=== PATIENT | male | born 1965 | race Caucasian/White ===

== ENCOUNTER 2022-02-12 07:29 | Inpatient (IN) ==
--- NOTE | 2022-02-12 07:40 | Emergency Department Note ---
Impression & Plan AMS (altered mental status) ADMIT ED Provider Note HPI: The patient is a 56-year-old male with history of cirrhosis, presents the emergency department with a chief complaint of confusion. Patient was reportedly waiting outside of [facility] for the past 2 hours prior to arrival to the ED "waiting for them to open". He does work for the [employer] in [employer] and states he was working last night and began to feel nauseous and apparently was confused and therefore was waiting outside of [facility]. When they opened the patient was referred to the ED for further assessment given his mild to moderate confusion. ROS: -Neuro: Confusion *10 point review systems was conducted and is otherwise negative unless stated above *Outpatient medications and allergy history reviewed PE: General: Alert, oriented to place and time HEENT: Normocephalic, trachea midline Eyes: Extraocular eye movement is intact, no scleral erythema Pulmonary: Clear to auscultation bilaterally, no wheezing Cardio: Regular rate and rhythm GI: Abdomen is soft, distended, no tenderness or rigidity to palpation : No suprapubic tenderness MSK: No evidence of trauma or malformation of the extremities, no edema Skin: No evidence of rash Neuro: Alert, no focal deficits Psychiatric: Cooperative child monitor: - An order was placed for continuous cardiac monitoring - Patient was noted to be in sinus rhythm with a rate of 90 EKG: Rate: 101 Rhythm: Sinus tachycardia Intervals: QTC 516, otherwise within normal limits ST changes: No ST elevation Time: 0738 Interventions provided in ED: -IV albumin, IV normal saline bolus, IV ceftriaxone Medical Decision Making: Patient presented to the emergency department with some mild to moderate confusion, he stated that he was working overnight with [employer] and was feeling unwell, states he had some nausea, states he generally just did not feel well and therefore went to [facility] to be assessed. They were not open so he waited there for several hours and when they opened they evaluated the patient and referred him to the ER. On arrival the patient is alert although he does display some mild confusion when I am obtaining history, he denies any focal complaint of pain. He is hemodynamically stable on arrival. IV was established, lab work obtained, CT imaging of the head was obtained that does not show any evidence of an acute intracranial process. Chest x-ray does not show any acute process. Lab work does not show any leukocytosis, patient's ammonia level is only 58, BUN is within normal limits. Patient did have an episode of hypotension into the 80s while he is work-up is ongoing, his lactic acid is moderately elevated at 2.3, blood cultures were drawn in the ED and patient was treated with a small bolus of IV fluids in addition to IV albumin to support his blood pressure. He was not given a full 30 cc/kg bolus over concern for third spacing of fluid given his history of cirrhosis. Blood pressure did improve following normal saline bolus and albumin to 113 systolic on my reassessment. Patient appears improved from previous when he was admitted. I discussed all of the above findings with the patient's brother, Yaw Duarte, on the phone, he states that the patient is from [place] and normally receives his care at the [facility] in [place]. He also states that the patient has had some increasing issues with confusion over the past several weeks, gives the example that he locked himself out of his house and then forgot where he was recently. At this time I do feel it would be appropriate to admit the patient for his confusion, hypotension, and lactic acidosis. He was treated prophylactically with IV ceftriaxone although have low suspicion for spontaneous bacterial peritonitis given his benign abdominal exam. I do not feel that he is fit for discharge at this time and therefore I did discuss the case with the on-call admitting service for [facility] and they were consulted for admission. Patient is in agreement for admission and he was admitted in stable condition. Diagnosis: 1. Altered mental status 3. Cirrhosis of the liver 4. Thrombocytopenia 5. Lactic acidosis 6. Hypotension, fluid responsive Disposition: Admission Yaw Verde DO Emergency Medicine Past Med/Surg History Social History Smoking Status: Never smoker Preferred Language: Bulgarian Feels Safe at Home: Yes Allergies Allergies Allergy/AdvReac Type Severity Reaction Status Date / Time lisinopril Allergy Severe Anaphylaxis Verified 02/12/22 11:42 Results & Data (ED) Vital Signs Vital Signs - 24 hr 02/12/22 07:36 02/12/22 08:15 02/12/22 08:00 Temperature 35.9 C L Temperature Source Axillary Pulse Rate 102 H Pulse Rate from SpO2 Sensor Respiratory Rate 22 Respiratory Effort / Characteristics Non-Labored Spontaneous Respiratory Depth Normal Blood Pressure 121/66 115/66 Blood Pressure Mean 84 82 Blood Pressure Position Lying Pulse Oximetry 100 Oxygen Delivery Method Room Air Sepsis Recent Fever Within 48 Hours No Sepsis New/Unexplained Change in Mental Status Yes Sepsis Action Taken by Nursing Physician Notified 02/12/22 08:00 02/12/22 08:30 02/12/22 09:00 Temperature Temperature Source Pulse Rate 99 H 105 H 99 H Pulse Rate from SpO2 Sensor Respiratory Rate 16 14 14 Respiratory Effort / Characteristics Respiratory Depth Blood Pressure 127/80 116/92 Blood Pressure Mean 95 100 Blood Pressure Position Pulse Oximetry 97 100 100 Oxygen Delivery Method Sepsis Recent Fever Within 48 Hours Sepsis New/Unexplained Change in Mental Status Sepsis Action Taken by Nursing 02/12/22 09:15 02/12/22 09:30 02/12/22 10:00 Temperature Temperature Source Pulse Rate 99 H 99 H 98 H Pulse Rate from SpO2 Sensor 99 H 99 H 99 H Respiratory Rate 14 14 14 Respiratory Effort / Characteristics Respiratory Depth Blood Pressure 112/61 112/60 115/66 Blood Pressure Mean 78 77 82 Blood Pressure Position Pulse Oximetry 100 100 99 Oxygen Delivery Method Sepsis Recent Fever Within 48 Hours Sepsis New/Unexplained Change in Mental Status Sepsis Action Taken by Nursing 02/12/22 10:30 02/12/22 11:00 Temperature Temperature Source Pulse Rate 100 H 99 H Pulse Rate from SpO2 Sensor 100 H 99 H Respiratory Rate 23 20 Respiratory Effort / Characteristics Respiratory Depth Blood Pressure 91/47 L 84/45 L Blood Pressure Mean 61 58 Blood Pressure Position Pulse Oximetry 98 97 Oxygen Delivery Method Sepsis Recent Fever Within 48 Hours Sepsis New/Unexplained Change in Mental Status Sepsis Action Taken by Nursing Laboratory Data Result diagrams: 02/12/22 08:12 02/12/22 08:11 Lab Results 02/12/22 02/12/22 02/12/22 Range/Units 07:57 08:11 08:11 WBC (4.8-10.8) K/ul RBC (4.63-6.08) M/uL Hgb (14.0-18.0) g/dl Hct (40.1-51.0) % MCV (80.0-100.0) fL MCH (25.0-34.0) pg MCHC (32.0-36.0) g/dL RDW Std Deviation (36.4-46.3) fL RDW Coeff of Gillian (11.5-14.5) % Plt Count (130-400) K/uL MPV (9.4-12.4) fL Neutrophils % (Manual) % Lymphocytes % (Manual) % Monocytes % (Manual) % Eosinophils % (Manual) % Neutrophils # (Manual) (1.4-6.5) K/uL Total Absolute Neuts (1.4-6.5) K/uL Lymphocytes # (Manual) (1.2-3.4) K/uL Total Abs Lymphocytes (1.2-3.4) K/uL Monocytes # (Manual) (0.24-0.82) K/uL Eosinophils # (Manual) (0-0.50) K/uL Platelet Estimate (Normal) Echinocytes PT 12.2 H (9.0-12.0) Seconds INR 1.2 H (0.9-1.1) APTT 25.2 (21.0-31.0) Seconds PTT Ratio 0.9 Sodium 133 L (136-145) mmol/L Potassium 3.5 (3.5-5.1) mmol/L Chloride 99 (98-107) mmol/L Carbon Dioxide 24 (21-32) mmol/L Anion Gap 10 (3-11) BUN 19 (6-23) mg/dl Creatinine 1.16 (0.6-1.4) mg/dl Est Cr Clr Drug Dosing 74.8 ml/min Est GFR ( Amer) 80.6 ml/min Est GFR (Non-Af Amer) 69.5 ml/min BUN/Creatinine Ratio 16.4 (10-20) Glucose 116 H (70-99(Fasting)) mg/dl POC Glucose 119 H (70-99) mg/dl Lactate (0.4-2.0) mmol/L Calcium 8.9 (8.5-10.1) mg/dl Magnesium 2.1 (1.7-2.4) mg/dl Total Bilirubin 2.0 H (0.2-1.0) mg/dl Direct Bilirubin 0.7 H (0-0.2) mg/dl AST 31 (13-39) U/L ALT 17 (7-52) U/L Alkaline Phosphatase 138 H (34-104) U/L Ammonia (18-72) umol/L Troponin I High Sens 9.8 (0-20) pg/ml Total Protein 6.4 (6.0-8.3) gm/dl Albumin 3.1 L (3.4-5.0) gm/dl Procalcitonin (0-0.5) ng/ml SARS-CoV-2 (PCR) (Negative) Influenza Type A (PCR) (Neg) Influenza Type B (PCR) (Neg) RSV (RT-PCR) (Neg) 02/12/22 02/12/22 02/12/22 Range/Units 08:11 08:11 08:12 WBC 10.40 (4.8-10.8) K/ul RBC 3.47 L (4.63-6.08) M/uL Hgb 10.7 L (14.0-18.0) g/dl Hct 30.2 L (40.1-51.0) % MCV 87.0 (80.0-100.0) fL MCH 30.8 (25.0-34.0) pg MCHC 35.4 (32.0-36.0) g/dL RDW Std Deviation 44.6 (36.4-46.3) fL RDW Coeff of Gillian 14.1 (11.5-14.5) % Plt Count 98 L (130-400) K/uL MPV 9.8 (9.4-12.4) fL Neutrophils % (Manual) 89 % Lymphocytes % (Manual) 8 % Monocytes % (Manual) 3 % Eosinophils % (Manual) 1 % Neutrophils # (Manual) 9.26 H (1.4-6.5) K/uL Total Absolute Neuts 9.26 H (1.4-6.5) K/uL Lymphocytes # (Manual) 0.83 L (1.2-3.4) K/uL Total Abs Lymphocytes 0.83 L (1.2-3.4) K/uL Monocytes # (Manual) 0.31 (0.24-0.82) K/uL Eosinophils # (Manual) 0.10 (0-0.50) K/uL Platelet Estimate Decreased L (Normal) Echinocytes 1+ PT (9.0-12.0) Seconds INR (0.9-1.1) APTT (21.0-31.0) Seconds PTT Ratio Sodium (136-145) mmol/L Potassium (3.5-5.1) mmol/L Chloride (98-107) mmol/L Carbon Dioxide (21-32) mmol/L Anion Gap (3-11) BUN (6-23) mg/dl Creatinine (0.6-1.4) mg/dl Est Cr Clr Drug Dosing ml/min Est GFR ( Amer) ml/min Est GFR (Non-Af Amer) ml/min BUN/Creatinine Ratio (10-20) Glucose (70-99(Fasting)) mg/dl POC Glucose (70-99) mg/dl Lactate (0.4-2.0) mmol/L Calcium (8.5-10.1) mg/dl Magnesium (1.7-2.4) mg/dl Total Bilirubin (0.2-1.0) mg/dl Direct Bilirubin (0-0.2) mg/dl AST (13-39) U/L ALT (7-52) U/L Alkaline Phosphatase (34-104) U/L Ammonia 58.0 (18-72) umol/L Troponin I High Sens (0-20) pg/ml Total Protein (6.0-8.3) gm/dl Albumin (3.4-5.0) gm/dl Procalcitonin < 0.05 (0-0.5) ng/ml SARS-CoV-2 (PCR) (Negative) Influenza Type A (PCR) (Neg) Influenza Type B (PCR) (Neg) RSV (RT-PCR) (Neg) 02/12/22 02/12/22 02/12/22 Range/Units 08:12 09:40 10:06 WBC (4.8-10.8) K/ul RBC (4.63-6.08) M/uL Hgb (14.0-18.0) g/dl Hct (40.1-51.0) % MCV (80.0-100.0) fL MCH (25.0-34.0) pg MCHC (32.0-36.0) g/dL RDW Std Deviation (36.4-46.3) fL RDW Coeff of Gillian (11.5-14.5) % Plt Count (130-400) K/uL MPV (9.4-12.4) fL Neutrophils % (Manual) % Lymphocytes % (Manual) % Monocytes % (Manual) % Eosinophils % (Manual) % Neutrophils # (Manual) (1.4-6.5) K/uL Total Absolute Neuts (1.4-6.5) K/uL Lymphocytes # (Manual) (1.2-3.4) K/uL Total Abs Lymphocytes (1.2-3.4) K/uL Monocytes # (Manual) (0.24-0.82) K/uL Eosinophils # (Manual) (0-0.50) K/uL Platelet Estimate (Normal) Echinocytes PT (9.0-12.0) Seconds INR (0.9-1.1) APTT (21.0-31.0) Seconds PTT Ratio Sodium (136-145) mmol/L Potassium (3.5-5.1) mmol/L Chloride (98-107) mmol/L Carbon Dioxide (21-32) mmol/L Anion Gap (3-11) BUN (6-23) mg/dl Creatinine (0.6-1.4) mg/dl Est Cr Clr Drug Dosing ml/min Est GFR ( Amer) ml/min Est GFR (Non-Af Amer) ml/min BUN/Creatinine Ratio (10-20) Glucose (70-99(Fasting)) mg/dl POC Glucose (70-99) mg/dl Lactate 2.3 H* 2.1 H* (0.4-2.0) mmol/L Calcium (8.5-10.1) mg/dl Magnesium (1.7-2.4) mg/dl Total Bilirubin (0.2-1.0) mg/dl Direct Bilirubin (0-0.2) mg/dl AST (13-39) U/L ALT (7-52) U/L Alkaline Phosphatase (34-104) U/L Ammonia (18-72) umol/L Troponin I High Sens (0-20) pg/ml Total Protein (6.0-8.3) gm/dl Albumin (3.4-5.0) gm/dl Procalcitonin (0-0.5) ng/ml SARS-CoV-2 (PCR) NEGATIVE (Negative) Influenza Type A (PCR) Negative (Neg) Influenza Type B (PCR) Negative (Neg) RSV (RT-PCR) Negative (Neg) Administered Medications Albumin Human (Albumin 5%) 250 mls @ 50 mls/hr IV ONE ONE Stop: 02/12/22 16:06 Last Admin: 02/12/22 11:12 Dose: 50 mls/hr Documented By: MT Discontinued Medications Sodium Chloride (Nss 1000ml) 500 mls @ 999 mls/hr IV .Q31M ONE Stop: 02/12/22 11:36 Last Admin: 02/12/22 11:08 Dose: 999 mls/hr Documented By: VITA Ceftriaxone Sodium (Rocephin) 2,000 mg in 70 mls @ 140 mls/hr IV NOW STA Stop: 02/12/22 11:37 Last Admin: 02/12/22 11:23 Dose: 140 mls/hr Documented By: VITA Imaging Data Radiologist's Impression: Chest X-Ray 02/12/22 07:37 XR chest 1V portable HISTORY: 56 years-old Male Sepsis acute sepsis COMPARISON: None TECHNIQUE: AP view of the chest FINDINGS: Cardiomediastinal and hilar silhouettes are within normal limits. No pneumothorax, pleural effusion, overt pulmonary edema or focal airspace consolidation. Mild right hemidiaphragmatic elevation. Degenerative changes of the right greater than left shoulders and spine. Surgical clip projects over the medial right lung base. IMPRESSION: No acute process. ACT 112: Negative or not required by law. The above report was generated using voice recognition software. It may contain grammatical, syntax or spelling errors. Electronically signed by: Stevie Buckley M.D. 02/12/2022 8:[address] 02/12/22 09:37 CT head/brain wo con CLINICAL HISTORY: 56 years-old Male with AMS. Acutely altered mental status TECHNIQUE: Multiple axial CT images of the head were obtained without contrast. A dose lowering technique was utilized adhering to the principles of ALARA. CT DOSE: 601.98 mGy.cm COMPARISON: None. FINDINGS: No acute intracranial hemorrhage, midline shift, intracranial mass, hydrocephalus, territorial ischemia or abnormal extra-axial collection. Mild involutional changes. Cerebral vascular calcifications. The calvarium is intact. The paranasal sinuses, mastoid air cells, and middle ear cavities are clear. IMPRESSION: No acute intracranial abnormality. ACT 112: Negative or not required by law. The above report was generated using voice recognition software. It may contain grammatical, syntax or spelling errors. Electronically signed by: Stevie Buckley M.D. 02/12/2022 10:04 AM Discharge Plan Visit Data Chief Complaint: Altered Mental Status Stated Complaint: WEAKNESS, NAUSEA ED Provider: Yaw Verde Discharge Problem: AMS (altered mental status) Forms Stand Alone Forms: [facility] Referrals Referrals: Natalie Amezcua M.D. [Primary Care Provider] - : AMS (altered mental status) Qualifiers: Altered mental status type: unspecified Qualified Code(s): R41.82 - Altered mental status, unspecified
--- NOTE | 2022-02-12 08:25 | XRay Report ---
XR chest 1V portable HISTORY: 56 years-old Male Sepsis acute sepsis COMPARISON: None TECHNIQUE: AP view of the chest FINDINGS: Cardiomediastinal and hilar silhouettes are within normal limits. No pneumothorax, pleural effusion, overt pulmonary edema or focal airspace consolidation. Mild right hemidiaphragmatic elevation. Degene rative changes of the right greater than left shoulders and spine. Surgical clip projects over the me dial right lung base. IMPRESSION: No acute process. ACT 112: Negative or not required by law. The above report was generated using voice recognition software. It may contain grammatical, syntax o r spelling errors. Electronically signed by: Stevie Buckley M.D. 02/12/2022 8:24 AM
[2022-02-12 08:43] LABS: INR 1.2 (0.9-1.1); Partial Thromboplastin Ratio 0.9; Partial Thromboplastin Time 25.2 Seconds (21.0-31.0); Prothrombin Time 12.2 Seconds (9.0-12.0)
[2022-02-12 08:51] LABS: ALC (manual) 0.83 K/uL (1.2-3.4); ANC (manual) 9.26 K/uL (1.4-6.5); Echinocytes 1+; Eosinophils % (manual) 1 %; Hematocrit (blood only) 30.2 % (40.1-51.0); Hemoglobin 10.7 g/dl (14.0-18.0); Lymphocytes # (manual) 0.83 K/uL (1.2-3.4); Lymphocytes % (manual) 8 %; Mean Corpuscular Hemoglobin 30.8 pg (25.0-34.0); Mean Corpuscular Hgb Conc 35.4 g/dL (32.0-36.0); Mean Platelet Volume 9.8 fL (9.4-12.4); Monocytes # (manual) 0.31 K/uL (0.24-0.82); Monocytes % (manual) 3 %; Neutrophils # (manual) 9.26 K/uL (1.4-6.5); Neutrophils % (manual) 89 %; Platelet Count 98 K/uL (130-400); Platelet Estimate Decreased (Normal); RDW Coefficient of Variation 14.1 % (11.5-14.5); RDW Standard Deviation 44.6 fL (36.4-46.3); Red Blood Count 3.47 M/uL (4.63-6.08)
[2022-02-12 09:01] LABS: Albumin Level 3.1 gm/dl (3.4-5.0); BUN Creatinine Ratio 16.4 (10-20); Bilirubin Direct 0.7 mg/dl (0-0.2); Calcium 8.9 mg/dl (8.5-10.1); Creatinine Clr Calc Pharmacy 74.8 ml/min; Est GFR (African American) 80.6 ml/min; Est GFR (Non-African American) 69.5 ml/min; Magnesium 2.1 mg/dl (1.7-2.4); Potassium 3.5 mmol/L (3.5-5.1); Total Protein 6.4 gm/dl (6.0-8.3)
[2022-02-12 09:02] LABS: Troponin I High Sensitivity 9.8 pg/ml (0-20)
--- NOTE | 2022-02-12 10:06 | CT Scan Report ---
CT head/brain wo con CLINICAL HISTORY: 56 years-old Male with AMS. Acutely altered mental status TECHNIQUE: Multiple axial CT images of the head were obtained without contrast. A dose lowering tech nique was utilized adhering to the principles of ALARA. CT DOSE: 601.98 mGy.cm COMPARISON: None. FINDINGS: No acute intracranial hemorrhage, midline shift, intracranial mass, hydrocephalus, territorial ischem ia or abnormal extra-axial collection. Mild involutional changes. Cerebral vascular calcifications. The calvarium is intact. The paranasal sinuses, mastoid air cells, and middle ear cavities are clear . IMPRESSION: No acute intracranial abnormality. ACT 112: Negative or not required by law. The above report was generated using voice recognition software. It may contain grammatical, syntax o r spelling errors. Electronically signed by: Stevie Buckley M.D. 02/12/2022 10:04 AM
[2022-02-12 10:58] LABS: Influenza A virus by PCR Negative (Neg); Influenza B virus by PCR Negative (Neg); RSV by PCR Negative (Neg); SARS CoV2 RNA(COVID-19)Cepheid NEGATIVE (Negative)
[2022-02-12] MEDS ORDERED: SODIUM CHLORIDE 0.9% 1000ML 500 ML IV ONE (11:06)
[2022-02-12] MEDS ORDERED: ALBUMIN 5% 250 ML IV ONE (11:07)
[2022-02-12] MEDS ORDERED: cefTRIAXone SODIUM 2,000 MG/70 ML BAG IV STA (11:08)
--- NOTE | 2022-02-12 11:53 | History & Physical Report ---
Date of Service February 12, 2022 Assessment & Plan (1) Encephalopathy: (2) Alcoholic cirrhosis: Plan: S/P TIPS procedure Patient is 56 y/o M with PMH alcoholic cirrhosis, s/p TIPS procedure at [facility] in 01/06, ascites, recurrent paracentesis, fibrosis of liver, HTN, CAD, hyponatremia, degenerative disc disease, OA presented to ER for AMS today. Second episode of altered mental status this week. Last reported ETOH drink 05/2021. In ER initial temperature obtained axillary 35.9C. Repeat oral temperature 36.6C. (Patient was waiting outside for unknown amount of time this morning) P: 104 down to 99. BP 122/66 trended down to 84/45 in ER In ER was given 500 mL NSS and albumin with improvement of SBP to 110 No leukocytosis, H&H: 10.7/30, PLT: 98, INR: 1.2, AST: 31, ALT: 17, alk phos: 138, T bili: 2.0, direct bili: 0.7 Lactate 2.3--> 2.1. Negative procalcitonin Ammonia: 58 CT Head: no acute intracranial abnormality Possible hepatic encephalopathy. ?cause - discontinuing home lactulose Will start lactulose and hold home Miralax Continue rifaximin Hold home Lasix and spironolactone currently with low BPs GI consult Patient follows with [facility] gastro CBC, CMP, ammonia level in a.m. (3) Ascites: Plan: Recurrent ascites requiring weekly paracentesis [facility] Last paracentesis 02/03/2022. 02/10/2022 scheduled for paracentesis however reported not enough fluid to remove Patient denies any abdominal pain, no noted abdominal pain to palpation today on exam. ? SBP In ER given Rocephin We will continue Rocephin Blood cultures pending Ultrasound abdomen GI consult (4) Thrombocytopenia: Plan: Chronic thrombocytopenia secondary to underlying cirrhosis Plt: 98. Unknown baseline No reported bleeding Monitor (5) Chronic hyponatremia: Plan: Na: 133 Unknown baseline Monitor (6) HTN (hypertension): Plan: Spironolactone and Lasix on hold currently with low BP (7) CAD (coronary artery disease): Plan: Underlying cardiac history unknown. Patient unable to give history currently and daughter is unsure Follows with cardiology in [place] - Dr Robins DVT Prophylaxis SCDs Patient's daughter, Dalia would like updates. . Initial medications discussed with patient and patient's daughter. Daughter is to go to pt's house to look at med bottles for further clarification. I have attempted multiple times to call daughter to confirm home med doses without answer. Full Code as per discussion with pt Follows with [facility] in [place] for routine care Pt was seen and care coordinated with Dr Grey. See addendum History of Present Illness Chief Complaint: AMS Primary Care Provider: Natalie Seven Patient is 56 y/o M with PMH alcoholic cirrhosis, s/p TIPS procedure at [facility] in 01/06, ascites, recurrent paracentesis, fibrosis of liver, HTN, CAD, hyponatremia, degenerative disc disease, OA presented to ER for AMS. History obtained from patient, chart review, and patient's daughter. Patient able to answer questions, but has to stop often and be redirected as he is forgetting what he is saying and often forgetting words. Patient with recent history confusion. A few days ago locked himself out of his house and was confused and stayed outside all night long as he thought he was at his brothers house and kept knocking on door to try to get inside. In the morning he woke up on porch in he recognized he was at home and had to walk to brother's house come to let him in his house. ER in [facility] 02/09/22 for AMS and daughter reports was told had normal ammonia level and patient's mental status returned to baseline and was discharged home. Daughter states saw him that day and he seemed back to baseline. Patient reported he forgot to take Miralax that day. Patient's daughter states recent med change of lactulose to Miralax as pt states lactulose made him have BM quickly and made him nauseated. 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 He remembers going to work last night and getting off of work however he reports he does not remember anything after that until this morning. Evidently patient was waiting outside of [facility] this morning and was found to be confused and was referred to ER. Patient reports he feels like he is confused and complains of nausea, otherwise denies any other medical complaints. He reports chronic abdominal distention and he feels distention is at baseline. Denies any abdominal pain. Receives paracentesis once a week. Last paracentesis was on 02/03/2022 at [facility]. Patient's daughter reports he went on 02/10/22 but he did not have enough fluid to remove. Last ate around noon yesterday. Nothing to drink since 9:00PM yesterday. Patient reports he took his medications yesterday and thinks he took Miralax. Denies any known injury/fall/trauma. Denies fever/chills, diaphoresis, V/D/C, MORALEZ, dizziness, syncope, vision changes, neck pain, CP, SOB, orthopnea, palpitations, cough, sore throat, choking, otalgia, rhinorrhea, paresthesias, weakness, extremity weakness, extremity edema, rashes, urinary symptoms. Last ETOH drink 05/2021. Patient not forthcoming on how much he previously drank ETOH. States drank beer. [facility] [place] Following with [facility] in [place]- [facility] [employer] - [place] Dalia, Daughter's phone #[phone] Allergies Allergy/AdvReac Type Severity Reaction Status Date / Time lisinopril Allergy Severe Anaphylaxis Verified 02/12/22 11:42 Home Medications Medication Instructions Recorded Confirmed Type folic acid 1 mg tablet 1 mg PO DAILY 02/12/22 02/12/22 History furosemide 40 mg tablet 40 mg PO BID 02/12/22 02/12/22 History polyethylene glycol 3350 17 gram 17 g PO BID 02/12/22 02/12/22 History oral powder packet (Miralax) rifaximin 550 mg tablet (Xifaxan) 550 mg PO BID 02/12/22 02/12/22 History spironolactone 100 mg tablet 100 mg PO DAILY 02/12/22 02/12/22 History Past Med/Surg History Medical History (Updated 02/12/22 @ 13:19 by Anyi Capone PA-C) Alcoholic cirrhosis Ascites CAD (coronary artery disease) Chronic hyponatremia HTN (hypertension) Thrombocytopenia Surgical History (Updated 02/12/22 @ 13:13 by Anyi Capone PA-C) S/P TIPS (transjugular intrahepatic portosystemic shunt) Family History (Updated 02/12/22 @ 13:15 by Anyi Capone PA-C) Brother Diabetes Mother Thyroid disease Social History (Updated 02/12/22 @ 13:16 by Anyi Capone PA-C) Smoking Status: Former smoker Tobacco Type: Cigarettes Cigarettes Per Day: 5-10 cigarettes/day; Smoking End Date: Quit summer 2021; Hx Alcohol Use: Yes (History prior alcohol use - beer. Last reported drink 05/2021) Hx Substance Use: No Preferred Language: Swedish Feels Safe at Home: Yes Review of Systems Review of Systems: All systems reviewed & are unremarkable except as noted in HPI & below Physical Exam Physical Exam: General: no acute distress, chronic ill appearing male Head: normocephalic, atraumatic Eyes: PERRL, EOM's intact, conjunctiva non-injected, anicteric ENT: normal inspection external ears, nose, mucous membranes mildly dry Neck: supple, trachea midline Lungs: clear, no respiratory distress, no wheezing/rhonchi/rales CV: RRR, no murmur, 1-2+ pretibial edema Abd: +distended, normal BS, soft, non-tender Ext: no cyanosis, no calf tenderness Neuro: Alert, oriented to person, place, year, day of week and not month. Slow to respond and needs frequent redirection, no focal deficits noted, normal affect Skin: warm, dry Results & Data Results & Data ([facility]) Vital Signs (Past 12 Hours) Vital Signs Temp Pulse Resp BP Pulse Ox O2 Del Method 02/12/22 11:00 99 H 20 84/45 L 97 02/12/22 10:30 100 H 23 91/47 L 98 02/12/22 10:00 98 H 14 115/66 99 02/12/22 09:30 99 H 14 112/60 100 02/12/22 09:15 99 H 14 112/61 100 02/12/22 09:00 99 H 14 116/92 100 02/12/22 08:30 105 H 14 127/80 100 02/12/22 08:00 99 H 16 97 02/12/22 08:00 115/66 02/12/22 08:15 35.9 C L 02/12/22 07:36 102 H 22 121/66 100 Room Air Laboratory Results Short CBC 02/12/22 Range/Units 08:12 WBC 10.40 (4.8-10.8) K/ul Hgb 10.7 L (14.0-18.0) g/dl Hct 30.2 L (40.1-51.0) % Plt Count 98 L (130-400) K/uL BMP 02/12/22 08:11 Sodium 133 L Potassium 3.5 Chloride 99 Carbon Dioxide 24 BUN 19 Creatinine 1.16 Glucose 116 H Calcium 8.9 Liver Function 02/12/22 Range/Units 08:11 Total Bilirubin 2.0 H (0.2-1.0) mg/dl Direct Bilirubin 0.7 H (0-0.2) mg/dl AST 31 (13-39) U/L ALT 17 (7-52) U/L Alkaline Phosphatase 138 H (34-104) U/L Albumin 3.1 L (3.4-5.0) gm/dl Diagnostic Findings Chest X-Ray 02/12/22 07:37 XR chest 1V portable HISTORY: 56 years-old Male Sepsis acute sepsis COMPARISON: None TECHNIQUE: AP view of the chest FINDINGS: Cardiomediastinal and hilar silhouettes are within normal limits. No pneumothorax, pleural effusion, overt pulmonary edema or focal airspace consolidation. Mild right hemidiaphragmatic elevation. Degenerative changes of the right greater than left shoulders and spine. Surgical clip projects over the medial right lung base. IMPRESSION: No acute process. ACT 112: Negative or not required by law. The above report was generated using voice recognition software. It may contain grammatical, syntax or spelling errors. Electronically signed by: Stevie Buckley M.D. 02/12/2022 8:[address] 02/12/22 09:37 CT head/brain wo con CLINICAL HISTORY: 56 years-old Male with AMS. Acutely altered mental status TECHNIQUE: Multiple axial CT images of the head were obtained without contrast. A dose lowering technique was utilized adhering to the principles of ALARA. CT DOSE: 601.98 mGy.cm COMPARISON: None. FINDINGS: No acute intracranial hemorrhage, midline shift, intracranial mass, hydrocephalus, territorial ischemia or abnormal extra-axial collection. Mild involutional changes. Cerebral vascular calcifications. The calvarium is intact. The paranasal sinuses, mastoid air cells, and middle ear cavities are clear. IMPRESSION: No acute intracranial abnormality. ACT 112: Negative or not required by law. The above report was generated using voice recognition software. It may contain grammatical, syntax or spelling errors. Electronically signed by: Stevie Buckley M.D. 02/12/2022 10:04 AM ECG Rate (beats per minute): 101 Rhythm: sinus tachycardia Supervising Physician Co-Signing Physician Notes Patient with history of ETOH cirrhosis (last drink 05/2021 per patient) presented with episodes of confusion. Likely hepatic encephalopathy, unclear etiology. Lab s largely unremarkable, ammonia wnl. Physical exam patient is AAOx3, heart RRR, lungs CTAB, abdomen distended but soft and nontender with positive fluid wave, LEs with 1+ edema to shins and dry skin. Will rule out infection with blood cultures and UA/urine culture, started empirically on ceftriaxone, RUQ US to evaluate for ascites, trend labs. Restart home medications including Rifaximin and lactulose. GI consult. Monitor. Case discussed with NELSON Espinoza and agree with he rest of the assessment and plan outlined in H&P above.
[2022-02-12 14:27] LABS: Appearance Urine Clear (Clear); Bilirubin Urine Negative (Negative); Blood Urine Negative (Negative); Color Urine Dark Yellow; Glucose Urine UA Negative (Negative); Ketones Urine Negative (Negative); Leukocyte Esterase Urine Negative (Negative); Nitrite Urine Negative (Negative); Protein Urine Negative (Negative); Specific Gravity Urine 1.018 (1.000-1.030); Urobilinogen Urine Positive (Negative)
[2022-02-12] MEDS ORDERED: ACETAMINOPHEN 325 MG TAB PO PRN (15:11)
--- NOTE | 2022-02-12 15:11 | Ultrasound Report ---
US liver HISTORY: 56 years-old Male ascites, eval liver acute right upper quadrant abdominal pain with ascite s COMPARISON: None TECHNIQUE: Multiple real-time sonographic images of the abdomen were obtained assessing grayscale patrice earance and color flow FINDINGS: The visualized pancreas is unremarkable. Cirrhotic liver measures 17.7 cm. Patent main portal vein. N o hepatic mass identified. Normal common bile duct measures 5 mm. Echogenic focus with ringdown artif act involving the gallbladder wall may represent adenomyomatosis. No shadowing cholelithiasis or gall bladder wall thickening. Small volume of ascites. A TIPS catheter is noted. IMPRESSION: 1. Cirrhotic liver with TIPS shunt and patent portal vein. 2. Small volume of abdominal ascites. 3. No cholelithiasis or sonographic evidence of acute cholecystitis. 4. Probable adenomyomatosis of the gallbladder. ACT 112: Negative or not required by law. The above report was generated using voice recognition software. It may contain grammatical, syntax o r spelling errors. Electronically signed by: Stevie Buckley M.D. 02/12/2022 3:09 PM
[2022-02-12] MEDS ORDERED: rifAXIMin 550 MG TABLET PO ONE (15:30)
[2022-02-12] MEDS ORDERED: LACTULOSE SYRUP 20 GM/30 ML UDC PO ONE (15:30)
[2022-02-12] MEDS ORDERED: LACTULOSE SYRUP 20 GM/30 ML UDC PO SCH ×2 (19:00→21:00)
[2022-02-12] MEDS ORDERED: POLYETHYLENE (MIRALAX) 17 GM PACK PO SCH (21:00)
[2022-02-12] MEDS: GABAPENTIN 600 MG TAB PO SCH (21:05)
[2022-02-12] MEDS: rifAXIMin 550 MG TABLET PO SCH (21:06)
[2022-02-13 05:35] LABS: Hematocrit (blood only) 25.4 % (40.1-51.0); Hemoglobin 9.1 g/dl (14.0-18.0); Mean Corpuscular Hemoglobin 31.1 pg (25.0-34.0); Mean Corpuscular Hgb Conc 35.8 g/dL (32.0-36.0); Mean Corpuscular Volume 86.7 fL (80.0-100.0); Mean Platelet Volume 9.6 fL (9.4-12.4); Platelet Count 86 K/uL (130-400); RDW Coefficient of Variation 14.1 % (11.5-14.5); RDW Standard Deviation 44.7 fL (36.4-46.3); Red Blood Count 2.93 M/uL (4.63-6.08); White Blood Count 7.04 K/ul (4.8-10.8)
[2022-02-13 05:44] LABS: INR 1.2 (0.9-1.1); Prothrombin Time 12.5 Seconds (9.0-12.0)
[2022-02-13 06:07] LABS: Albumin Level 2.6 gm/dl (3.4-5.0); BUN Creatinine Ratio 17.7 (10-20); Bilirubin,Total 1.6 mg/dl (0.2-1.0); Calcium 8.4 mg/dl (8.5-10.1); Creatinine Clr Calc Pharmacy 90.4 ml/min; Est GFR (African American) 101.3 ml/min; Est GFR (Non-African American) 87.4 ml/min; Globulin 2.6 gm/dl (2.5-4.0); Magnesium 1.9 mg/dl (1.7-2.4); Phosphorus 3.4 mg/dl (2.5-4.9); Potassium 3.4 mmol/L (3.5-5.1); Total Protein 5.2 gm/dl (6.0-8.3)
[2022-02-13 06:53] LABS: Basophils # (auto) 0.07 K/uL (0-0.2); Eosinophils # (auto) 0.43 K/uL (0-0.50); Eosinophils % (auto) 6.1 %; Immature Granulocytes # (auto) 0.01 K/uL (0.00-0.02); Immature Granulocytes % (auto) 0.1 %; Lymphocytes # (auto) 2.79 K/uL (1.2-3.4); Lymphocytes % (auto) 39.6 %; Monocytes % (auto) 7.1 %; Neutrophils # (auto) 3.24 K/uL (1.4-6.5); Neutrophils % (auto) 46.1 %
[2022-02-13] MEDS ORDERED: POTASSIUM CHLORIDE CRTAB 20 MEQ TABCR PO ONE (08:00)
[2022-02-13] MEDS: FOLIC ACID 1 MG TAB PO SCH (08:18)
[2022-02-13] MEDS: cefTRIAXone SODIUM 2,000 MG in DEXTROSE 5% 50 ML IV SCH (08:18)
[2022-02-13] MEDS: PANTOprazole 40 MG TAB PO SCH (08:18)
[2022-02-13] MEDS: rifAXIMin 550 MG TABLET PO SCH ×2 (08:18→20:00)
[2022-02-13] MEDS: LORATADINE 10 MG TAB PO SCH (08:18)
[2022-02-13] MEDS ORDERED: POLYETHYLENE (MIRALAX) 17 GM PACK PO SCH (09:00)
--- NOTE | 2022-02-13 10:46 | Hospitalist Progress Note ---
Date of Service February 13, 2022 Assessment & Plan (1) Encephalopathy: Plan: - unclear etiology at this time - had asterixis mildly in ED on admission - somewhat improved this morning - blood cultures pending - continue on ceftriaxone - abdominal pain without significant ascites - ammonia on admission wnl but increased this morning - AAOx3, no BM yet today - mental status seems somewhat improved today - will likely continue on empiric abx for 7 days pending further recs from GI - follow up GI recommendations (2) Alcoholic cirrhosis: Plan: - s/p TIPS 12/2021 - No leukocytosis, H&H: 10.7/30, PLT: 98, INR: 1.2, AST: 31, ALT: 17, alk phos: 138, T bili: 2.0, direct bili: 0.7 - Lactate 2.3--> 2.1-->1.9 - Ammonia: 58-->109 this morning - MS improved however - abdominal US without significant ascites - CT Head: no acute intracranial abnormality - Possible hepatic encephalopathy. ?cause - discontinuing home lactulose vs occult infection? - Patient declining lactulose yesterday but may be amenable today - follow up GI - Continue rifaximin - Hold home Lasix and spironolactone currently with low BPs - restart if remains stable - GI consult - Patient follows with [facility] (3) Ascites: Plan: - Recurrent ascites [facility] 02/03/2022. 02/10/2022 scheduled for paracentesis however reported not enough fluid to remove - Patient denies any abdominal pain, no noted abdominal pain to palpation today on exam. - low concern for SBP given no significant ascites, afebrile, no abdominal pain - on empiric ceftriaxone for now - abdominal US without significant ascites (4) Thrombocytopenia: Plan: - Chronic thrombocytopenia secondary to underlying cirrhosis - Plt: 98. Unknown baseline - No reported bleeding - Monitor (5) Chronic hyponatremia: Plan: - Na: 133 - Unknown baseline - Monitor (6) HTN (hypertension): Plan: - Spironolactone and Lasix on hold currently with low BP - follow up GI (7) CAD (coronary artery disease): Plan: - Underlying cardiac history unknown. Patient unable to give history currently and daughter is unsure - Follows with cardiology in [place] - Dr Robins - no chest pain - ECG on admission with sinus tachycardia, no ischemic changes Plan DVT Prophylaxis: SCDs Code Status: Full Code Dispo: telemetry Patient's daughter, Dalia would like updates. . Follows with [facility] in [place] for routine care Reynaldo Grey MD Hospital Medicine Admission and Anticipated Discharge Date Admission Date: February 12, 2022 Subjective Patient with ETOH cirrhosis s/p TIPs at [facility] 12/2021, h/o ascites requiring periodic paracentesis, HTN, CAD, hyponatremia presented for intermittent confusion. AAOx3 on exam at presentation. Started on empiric ceftriaxone, blood cultures drawn, abdominal US without significant ascites. continued on home meds, GI consulted. Patient reports feeling well today. Improvement in shaking symptoms. Denies fevers or chills, n/v/d, chest pain, shortness of breath, dysuria, abdominal pain. Has not had BM yet today. AAOx3. Review of Systems Review of Systems: All systems reviewed & are unremarkable except as noted in Subjective Physical Exam Physical Exam: General: no acute distress, chronic ill appearing male Head: normocephalic, atraumatic Eyes: PERRL, EOM's intact, conjunctiva non-injected, anicteric ENT: normal inspection external ears, nose, mucous membranes mildly dry Neck: supple, trachea midline Lungs: clear, no respiratory distress, no wheezing/rhonchi/rales CV: RRR, no murmur, trace pretibial edema Abd: +distended, normal BS, soft, non-tender Ext: no cyanosis, no calf tenderness Neuro: Alert, oriented to person, place, year, day of week and month. interacting normally, no focal deficits noted, normal affect. Minimal asterixis this morning Skin: warm, dry Results & Data Results & Data ([facility]) Vital Signs (Past 12 Hours) Vital Signs Temp Pulse Pulse Resp BP Pulse Ox O2 Del Method 02/13/22 07:47 36.9 C 81 16 108/64 99 Room Air 02/13/22 07:30 85 02/13/22 03:18 37.0 C 86 14 96/56 L 95 Room Air 02/13/22 00:10 85 Diagnostic Findings Laboratory Results WBC 7.04 K/ul (4.8-10.8) 02/13/22 05:25 RBC 2.93 M/uL (4.63-6.08) L 02/13/22 05:25 Hgb 9.1 g/dl (14.0-18.0) L 02/13/22 05:25 Hct 25.4 % (40.1-51.0) L 02/13/22 05:25 MCV 86.7 fL (80.0-100.0) 02/13/22 05:25 MCH 31.1 pg (25.0-34.0) 02/13/22 05:25 MCHC 35.8 g/dL (32.0-36.0) 02/13/22 05:25 RDW Std Deviation 44.7 fL (36.4-46.3) 02/13/22 05:25 RDW Coeff of Gillian 14.1 % (11.5-14.5) 02/13/22 05:25 Plt Count 86 K/uL (130-400) L 02/13/22 05:25 MPV 9.6 fL (9.4-12.4) 02/13/22 05:25 Immature Gran % (Auto) 0.1 % 02/13/22 05:25 Neut % (Auto) 46.1 % 02/13/22 05:25 Lymph % (Auto) 39.6 % 02/13/22 05:25 [place] % (Auto) 7.1 % 02/13/22 05:25 Eos % (Auto) 6.1 % 02/13/22 05:25 Baso % (Auto) 1.0 % 02/13/22 05:25 Neut # (Auto) 3.24 K/uL (1.4-6.5) 02/13/22 05:25 Lymph # (Auto) 2.79 K/uL (1.2-3.4) 02/13/22 05:25 [place]erry # (Auto) 0.50 K/uL (0.24-0.82) 02/13/22 05:25 Eos # (Auto) 0.43 K/uL (0-0.50) 02/13/22 05:25 Baso # (Auto) 0.07 K/uL (0-0.2) 02/13/22 05:25 Immature Gran # (Auto) 0.01 K/uL (0.00-0.02) 02/13/22 05:25 Neutrophils % (Manual) 89 % 02/12/22 08:12 Lymphocytes % (Manual) 8 % 02/12/22 08:12 Monocytes % (Manual) 3 % 02/12/22 08:12 Eosinophils % (Manual) 1 % 02/12/22 08:12 Neutrophils # (Manual) 9.26 K/uL (1.4-6.5) H 02/12/22 08:12 Total Absolute Neuts 9.26 K/uL (1.4-6.5) H 02/12/22 08:12 Lymphocytes # (Manual) 0.83 K/uL (1.2-3.4) L 02/12/22 08:12 Total Abs Lymphocytes 0.83 K/uL (1.2-3.4) L 02/12/22 08:12 Monocytes # (Manual) 0.31 K/uL (0.24-0.82) 02/12/22 08:12 Eosinophils # (Manual) 0.10 K/uL (0-0.50) 02/12/22 08:12 Platelet Estimate Decreased (Normal) L 02/12/22 08:12 Echinocytes 1+ 02/12/22 08:12 PT 12.5 Seconds (9.0-12.0) H 02/13/22 05:25 INR 1.2 (0.9-1.1) H 02/13/22 05:25 APTT 25.2 Seconds (21.0-31.0) 02/12/22 08:11 PTT Ratio 0.9 02/12/22 08:11 Sodium 131 mmol/L (136-145) L 02/13/22 05:25 Potassium 3.4 mmol/L (3.5-5.1) L 02/13/22 05:25 Chloride 102 mmol/L (98-107) 02/13/22 05:25 Carbon Dioxide 24 mmol/L (21-32) 02/13/22 05:25 Anion Gap 5 (3-11) 02/13/22 05:25 BUN 17 mg/dl (6-23) 02/13/22 05:25 Creatinine 0.96 mg/dl (0.6-1.4) 02/13/22 05:25 Est Cr Clr Drug Dosing 90.4 ml/min 02/13/22 05:25 Est GFR ( Amer) 101.3 ml/min 02/13/22 05:25 Est GFR (Non-Af Amer) 87.4 ml/min 02/13/22 05:25 BUN/Creatinine Ratio 17.7 (10-20) 02/13/22 05:25 Glucose 101 mg/dl (70-99(Fasting)) H 02/13/22 05:25 POC Glucose 119 mg/dl (70-99) H 02/12/22 07:57 Lactate 1.9 mmol/L (0.4-2.0) 02/12/22 15:37 Calcium 8.4 mg/dl (8.5-10.1) L 02/13/22 05:25 Phosphorus 3.4 mg/dl (2.5-4.9) 02/13/22 05:25 Magnesium 1.9 mg/dl (1.7-2.4) 02/13/22 05:25 Total Bilirubin 1.6 mg/dl (0.2-1.0) H 02/13/22 05:25 Direct Bilirubin 0.7 mg/dl (0-0.2) H 02/12/22 08:11 AST 23 U/L (13-39) 02/13/22 05:25 ALT 11 U/L (7-52) 02/13/22 05:25 Alkaline Phosphatase 106 U/L (34-104) H 02/13/22 05:25 Ammonia 106.0 umol/L (18-72) H 02/13/22 05:25 Troponin I High Sens 9.8 pg/ml (0-20) 02/12/22 08:11 Total Protein 5.2 gm/dl (6.0-8.3) L 02/13/22 05:25 Albumin 2.6 gm/dl (3.4-5.0) L 02/13/22 05:25 Globulin 2.6 gm/dl (2.5-4.0) 02/13/22 05:25 Albumin/Globulin Ratio 1.0 (0.9-2) 02/13/22 05:25 Procalcitonin < 0.05 ng/ml (0-0.5) 02/12/22 08:11 Urine Color Dark Yellow 02/12/22 13:30 Urine Appearance Clear (Clear) 02/12/22 13:30 Urine pH 8.0 (4.5-7.5) H 02/12/22 13:30 Ur Specific [place] 1.018 (1.000-1.030) 02/12/22 13:30 Urine Protein Negative (Negative) 02/12/22 13:30 Urine Glucose (UA) Negative (Negative) 02/12/22 13:30 Urine Ketones Negative (Negative) 02/12/22 13:30 Urine Blood Negative (Negative) 02/12/22 13:30 Urine Nitrite Negative (Negative) 02/12/22 13:30 Urine Bilirubin Negative (Negative) 02/12/22 13:30 Urine Urobilinogen Positive (Negative) H 02/12/22 13:30 Ur Leukocyte Esterase Negative (Negative) 02/12/22 13:30 SARS-CoV-2 (PCR) NEGATIVE (Negative) 02/12/22 09:40 Influenza Type A (PCR) Negative (Neg) 02/12/22 09:40 Influenza Type B (PCR) Negative (Neg) 02/12/22 09:40 RSV (RT-PCR) Negative (Neg) 02/12/22 09:40 Impressions Chest X-Ray 02/12/22 07:37 XR chest 1V portable HISTORY: 56 years-old Male Sepsis acute sepsis COMPARISON: None TECHNIQUE: AP view of the chest FINDINGS: Cardiomediastinal and hilar silhouettes are within normal limits. No pneumothorax, pleural effusion, overt pulmonary edema or focal airspace consolidation. Mild right hemidiaphragmatic elevation. Degenerative changes of the right greater than left shoulders and spine. Surgical clip projects over the medial right lung base. IMPRESSION: No acute process. ACT 112: Negative or not required by law. The above report was generated using voice recognition software. It may contain grammatical, syntax or spelling errors. Electronically signed by: Stevie Buckley M.D. 02/12/2022 8:[address] 02/12/22 09:37 CT head/brain wo con CLINICAL HISTORY: 56 years-old Male with AMS. Acutely altered mental status TECHNIQUE: Multiple axial CT images of the head were obtained without contrast. A dose lowering technique was utilized adhering to the principles of ALARA. CT DOSE: 601.98 mGy.cm COMPARISON: None. FINDINGS: No acute intracranial hemorrhage, midline shift, intracranial mass, hydroc ephalus, territorial ischemia or abnormal extra-axial collection. Mild involutional changes. Cerebral vascular calcifications. The calvarium is intact. The paranasal sinuses, mastoid air cells, and middle ear cavities are clear. IMPRESSION: No acute intracranial abnormality. ACT 112: Negative or not required by law. The above report was generated using voice recognition software. It may contain grammatical, syntax or spelling errors. Electronically signed by: Stevie Buckley M.D. 02/12/2022 10:04 AM Liver Ultrasound 02/12/22 12:56 US liver HISTORY: 56 years-old Male ascites, eval liver acute right upper quadrant abdominal pain with ascites COMPARISON: None TECHNIQUE: Multiple real-time sonographic images of the abdomen were obtained assessing grayscale appearance and color flow FINDINGS: The visualized pancreas is unremarkable. Cirrhotic liver measures 17.7 cm. Patent main portal vein. No hepatic mass identified. Normal common bile duct measures 5 mm. Echogenic focus with ringdown artifact involving the gallbladder wall may represent adenomyomatosis. No shadowing cholelithiasis or gallbladder wall thickening. Small volume of ascites. A TIPS catheter is noted. IMPRESSION: 1. Cirrhotic liver with TIPS shunt and patent portal vein. 2. Small volume of abdominal ascites. 3. No cholelithiasis or sonographic evidence of acute cholecystitis. 4. Probable adenomyomatosis of the gallbladder. ACT 112: Negative or not required by law. The above report was generated using voice recognition software. It may contain grammatical, syntax or spelling errors. Electronically signed by: Stevie Buckley M.D. 02/12/2022 3:09 PM Medications Administered Current Inpatient Medications Acetaminophen (Acetaminophen 325 Mg Tab) 650 mg PO Q4H PRN PRN Reason: Pain or Fever Stop: 03/14/22 15:10 Folic Acid (Folic Acid 1 Mg Tab) 1 mg PO DAILY IMANI Stop: 03/15/22 08:59 Last Admin: 02/13/22 08:18 Dose: 1 mg Gabapentin (Gabapentin 600 Mg Tab) 600 mg PO HS IMANI Stop: 03/14/22 20:59 Last Admin: 02/12/22 21:05 Dose: 600 mg Ceftriaxone Sodium 2,000 mg/ (Dextrose) 70 mls @ 100 mls/hr IV DAILY IMANI; Protocol Stop: 02/23/22 08:59 Last Infusion: 02/13/22 09:19 Dose: Infused Loratadine (Loratadine 10 Mg Tab) 10 mg PO DAILY [facility] Stop: 03/15/22 08:59 Last Admin: 02/13/22 08:18 Dose: 10 mg Miscellaneous (Order Awaiting Action) 1 each N/A QS [facility] Stop: 03/15/22 00:00 Last Admin: 02/13/22 08:12 Dose: Not Given Pantoprazole Sodium (Pantoprazole 40 Mg Tab) 40 mg PO DAILY IMANI Stop: 03/15/22 08:59 Last Admin: 02/13/22 08:18 Dose: 40 mg Polyethylene Glycol (Polyethylene (Miralax) 17 Gm Pack) 17 gm PO TID [facility] Stop: 03/15/22 08:59 Last Admin: 02/13/22 08:18 Dose: 17 gm Rifaximin (Rifaximin 550 Mg Tablet) 550 mg PO BID [facility] Stop: 03/14/22 20:59 Last Admin: 02/13/22 08:18 Dose: 550 mg
[2022-02-13] MEDS: LACTULOSE SYRUP 20 GM/30 ML UDC PO SCH ×2 (14:21→20:00)
--- NOTE | 2022-02-13 14:34 | Gastrointestinal Consultation ---
Date of Consultation February 13, 2022 Assessment & Plan (1) Encephalopathy: Likely post TIPS with nonadherence to Lactulose. Obtain US doppler to check TIPS patency. Lactulose and Xifaxan. PRN antiemetics to help tolerate Lactulose. Follow up at [facility]. Recall GI if needed. (2) Alcoholic cirrhosis: History of Present Illness Reason for Consultation: Hepatic encephalopathy Attending Physician: Reynaldo Grey MD History of Present Illness 56 years old male patient with Liver cirrhosis, follows with [facility] and had TIPS placed last month for refractory large volume ascites, presented with AMS and found with HE. He was on Lactulose but his Liver team at [facility] advised to switch to Miralax as he had nausea from Lactulose. Currently he is AOx3 and back to baseline. Ascites improved after TIPS, Denies any symptoms of GI bleeding, no fever or signs of sepsis. Allergies Allergy/AdvReac Type Severity Reaction Status Date / Time lisinopril Allergy Severe Anaphylaxis Verified 02/12/22 11:42 Home Medications Medication Instructions Recorded Confirmed Type cholecalciferol (vitamin D3) 100 100 mcg PO DAILY 02/12/22 02/12/22 History mcg (4,000 unit) capsule folic acid 1 mg tablet 1 mg PO DAILY 02/12/22 02/12/22 History furosemide 40 mg tablet 40 mg PO BID 02/12/22 02/12/22 History gabapentin 600 mg tablet 600 mg PO HS 02/12/22 02/12/22 History loratadine 10 mg tablet 10 mg PO DAILY 02/12/22 02/12/22 History pantoprazole 40 mg tablet,delayed 40 mg PO DAILY 02/12/22 02/12/22 History release polyethylene glycol 3350 17 gram 17 g PO BID 02/12/22 02/12/22 History oral powder packet (Miralax) rifaximin 550 mg tablet (Xifaxan) 550 mg PO BID 02/12/22 02/12/22 History spironolactone 50 mg tablet 50 mg PO TID 02/12/22 02/12/22 History zonisamide 50 mg capsule 150 mg PO DAILY 02/12/22 02/12/22 History Patient History Medical History (Updated 02/12/22 @ 13:19 by Anyi Capone PA-C) Alcoholic cirrhosis Ascites CAD (coronary artery disease) Chronic hyponatremia HTN (hypertension) Thrombocytopenia Surgical History (Updated 02/12/22 @ 13:13 by Anyi Capone PA-C) S/P TIPS (transjugular intrahepatic portosystemic shunt) Family History (Updated 02/12/22 @ 13:15 by Anyi Capone PA-C) Brother Diabetes Mother Thyroid disease Social History (Updated 02/12/22 @ 13:16 by Anyi Capone PA-C) Smoking Status: Former smoker Tobacco Type: Cigarettes Cigarettes Per Day: 5-10 cigarettes/day; Smoking End Date: Quit summer 2021; Hx Alcohol Use: No (History prior alcohol use - beer. Last reported drink 05/2021) Hx Substance Use: No Preferred Language: Vietnamese Communication Ability: Effective [employer] Required: No Beliefs That Will Affect Care: None Current Living Situation: Alone Other Information That Helps Us Care for You: No Feels Safe at Home: Yes Safety Concerns: Feels Safe At This Time Assistive Devices: Glasses Review of Systems Constitutional: no fever, no chills, no fatigue and no weight loss Eyes: no eye pain and no worsening vision Ear, Nose, Mouth, Throat: no tinnitus, no dizziness, no nasal discharge and no epistaxis Respiratory: no cough, no dyspnea, no dyspnea on exertion and no wheezing Cardiovascular: no chest pain, no orthopnea, no palpitations and no edema Gastrointestinal: as per Subjective / HPI Musculoskeletal: no stiffness and no myalgia Neurologic: no localized weakness, no paralysis, no tremor(s) and no headache(s) Endocrine: no polydipsia and no polyuria Hematologic / Lymphatic: no easy bleeding and no night sweats Physical Exam Constitutional: + well hydrated, cooperative and comfortable Eyes: PERRL, conjunctivae normal, anicteric sclerae ENMT: external ear and nose normal, oropharynx normal Neck: normal visual inspection and trachea midline Respiratory: normal respiratory effort, lungs clear to auscultation Auscultation: no wheezes Cardiovascular: RRR, no murmur, no edema Gastrointestinal (Abdomen): Soft, nontender Musculoskeletal: no cyanosis or clubbing, extremities motor strength 5/5 Skin: no rashes, warm and dry Neurologic: awake; no focal motor deficits Motor/Sensory: no tremor Results & Data ([facility]) Vital Signs (Past 12 Hours) Vital Signs Temp Pulse Pulse Resp BP Pulse Ox O2 Del Method 02/13/22 12:10 36.8 C 89 16 104/62 100 Room Air 02/13/22 07:47 36.9 C 81 16 108/64 99 Room Air 02/13/22 07:30 85 02/13/22 03:18 37.0 C 86 14 96/56 L 95 Room Air Laboratory Results Laboratory Results - last 24 hr 02/12/22 02/12/22 02/13/22 08:11 15:37 05:25 WBC 7.04 RBC 2.93 L Hgb 9.1 L Hct 25.4 L MCV 86.7 MCH 31.1 MCHC 35.8 RDW Std Deviation 44.7 RDW Coeff of Gillian 14.1 Plt Count 86 L MPV 9.6 Immature Gran % (Auto) 0.1 Neut % (Auto) 46.1 Lymph % (Auto) 39.6 [place] % (Auto) 7.1 Eos % (Auto) 6.1 Baso % (Auto) 1.0 Neut # (Auto) 3.24 Lymph # (Auto) 2.79 [place]att # (Auto) 0.50 Eos # (Auto) 0.43 Baso # (Auto) 0.07 Immature Gran # (Auto) 0.01 PT INR Sodium Potassium Chloride Carbon Dioxide Anion Gap BUN Creatinine Est Cr Clr Drug Dosing Est GFR ( Amer) Est GFR (Non-Af Amer) BUN/Creatinine Ratio Glucose Lactate 1.9 Calcium Phosphorus Magnesium Total Bilirubin AST ALT Alkaline Phosphatase Ammonia Total Protein Albumin Globulin Albumin/Globulin Ratio Hepatitis C Ab (EIA) Pending Hep C Ab Signal/Cutoff Pending 02/13/22 02/13/22 02/13/22 05:25 05:25 05:25 WBC RBC Hgb Hct MCV MCH MCHC RDW Std Deviation RDW Coeff of Gillian Plt Count MPV Immature Gran % (Auto) Neut % (Auto) Lymph % (Auto) Piatt % (Auto) Eos % (Auto) Baso % (Auto) Neut # (Auto) Lymph # (Auto) Piatt # (Auto) Eos # (Auto) Baso # (Auto) Immature Gran # (Auto) PT 12.5 H INR 1.2 H Sodium 131 L Potassium 3.4 L Chloride 102 Carbon Dioxide 24 Anion Gap 5 BUN 17 Creatinine 0.96 Est Cr Clr Drug Dosing 90.4 Est GFR ( Amer) 101.3 Est GFR (Non-Af Amer) 87.4 BUN/Creatinine Ratio 17.7 Glucose 101 H Lactate Calcium 8.4 L Phosphorus 3.4 Magnesium 1.9 Total Bilirubin 1.6 H AST 23 ALT 11 Alkaline Phosphatase 106 H Ammonia 106.0 H Total Protein 5.2 L Albumin 2.6 L Globulin 2.6 Albumin/Globulin Ratio 1.0 Hepatitis C Ab (EIA) Hep C Ab Signal/Cutoff
[2022-02-13] MEDS ORDERED: SIMETHICONE 80 MG CHEW PO PRN (15:29)
--- NOTE | 2022-02-13 19:01 | Ultrasound Report ---
US duplex portal hepatic veins CLINICAL HISTORY: evaluate TIPS patency COMPARISON STUDY: Right upper cord ultrasound February 12, 2022. TECHNIQUE: Color and duplex Doppler sonography of the major hepatic vessels and the TIPS was chirag ag. FINDINGS: The liver is cirrhotic with perihepatic ascites. The main and left portal veins are patent with appropriately directed flow. The middle, left and right hepatic veins are patent. The TIPS is pa tent. There is an elevated peak systolic velocity of 259 cm/s within the mid TIPS. Color aliasing is noted. IMPRESSION: 1. Patent TIPS. However, elevated velocity within the TIPS with color aliasing which raises the possi bility of a stenosis. 2. Cirrhosis. Perihepatic ascites. 3. Patent main portal vein. ACT 112: Negative or not required by law. Electronically signed by: Titi Scales M.D. 02/13/2022 6:59 PM
[2022-02-13] MEDS: GABAPENTIN 600 MG TAB PO SCH (20:00)
--- NOTE | 2022-02-13 20:38 | Electrocardiogram Report ---
Test Reason : Blood Pressure : / mmHG Vent. Rate : 101 BPM Atrial Rate : 101 BPM P-R Int : 158 ms QRS Dur : 088 ms QT Int : 398 ms P-R-T Axes : 065 008 063 degrees QTc Int : 516 ms Sinus tachycardia Low voltage QRS Cannot rule out Anterior infarct , age undetermined Prolonged QT Abnormal ECG No previous ECGs available Confirmed by Yordy Denise ([id number]) on 02/13/2022 8:38:22 PM Referred By: REFERRED SELF Confirmed By:Yordy Denise
[2022-02-14] MEDS: LACTULOSE SYRUP 20 GM/30 ML UDC PO SCH (08:04)
[2022-02-14] MEDS: rifAXIMin 550 MG TABLET PO SCH (08:04)
[2022-02-14] MEDS: LORATADINE 10 MG TAB PO SCH (08:04)
[2022-02-14] MEDS: cefTRIAXone SODIUM 2,000 MG in DEXTROSE 5% 50 ML IV SCH (08:05)
[2022-02-14] MEDS: PANTOprazole 40 MG TAB PO SCH (08:05)
[2022-02-14] MEDS: FOLIC ACID 1 MG TAB PO SCH (08:05)
[2022-02-14 08:38] LABS: INR 1.2 (0.9-1.1); Prothrombin Time 12.5 Seconds (9.0-12.0)
[2022-02-14 08:39] LABS: Albumin Globulin Ratio 0.9 (0.9-2); Albumin Level 2.5 gm/dl (3.4-5.0); BUN Creatinine Ratio 15.5 (10-20); Bilirubin,Total 1.4 mg/dl (0.2-1.0); Calcium 8.2 mg/dl (8.5-10.1); Creatinine Clr Calc Pharmacy 89.5 ml/min; Est GFR (Non-African American) 86.3 ml/min; Globulin 2.8 gm/dl (2.5-4.0); Magnesium 1.7 mg/dl (1.7-2.4); Phosphorus 2.8 mg/dl (2.5-4.9); Potassium 3.4 mmol/L (3.5-5.1); Total Protein 5.3 gm/dl (6.0-8.3)
--- NOTE | 2022-02-14 10:58 | Gastroenterology Progress Note ---
Date of Service February 14, 2022 Assessment & Plan (1) Hepatic encephalopathy: Plan: Likely secondary to change from lactulose to MiraLAX. Patient was restarted on lactulose. And is back to baseline. No evidence of infection or GI bleeding. Plan Would add UA culture otherwise work-up for infection is negative. Low-salt diet. Lactulose 20 g BID times daily and Rifaximin 550mg BID. Instructed to titrate lactulose to affect 3 loose BMs/day. Would have pt f/u w his sanitary chemist regarding diuretic (still listed on home meds, but I suspect these have been discontinued). No GI contraindication for discharge. GI will sign off. Follow-up with [facility] hepatology. Admission and Anticipated Discharge Date Admission Date: February 12, 2022 Supervising Physician Co-Signing Physician Notes I have seen this patient, examined, and agree with note as above by Ms. Lana Lechuga: - HE resolved - FU with [facility] OLT team - Lactulose and Xifaxin Subjective 56 yr old male w cirrhosis post TIPs in December for ascites. Admitted yesterday for confusion.Tells me that he also had some confusion about 6 days ago that had resolved. Had been changed from Lactulose but his Liver team at [facility] ->Miralax prior to the first episode of confusion. Now awake, alert. , Denies any symptoms of GI bleeding, no fever or signs of sepsis. Review of Systems Review of Systems: ROS: Neuro: confusion is resolved Gen: Denies weakness, fevers, weight loss Eyes: No eye redness, or pain, no recent vision changes Resp: No SOB, no cough Cardio: No palpitations/irregular beats, no chest pain GI: No abdominal pain, no nausea/vomiting : Denies pain on urination Skin: No jaundice, itching or new rashes Physical Exam Constitutional: WD/WN, vitals as above Eyes: PERRL, conjunctivae normal, anicteric sclerae ENMT: external ear and nose normal, oropharynx normal Neck: trachea midline, no thyromegaly Respiratory: normal respiratory effort, lungs clear to auscultation Cardiovascular: RRR, no murmur, no edema Gastrointestinal (Abdomen): soft, non tender, minimal/mild ascites Skin: No jaundice Neurologic: PERRL, EOMI, accommodation nl, no face palsy, no dysarthria No asterixes Psychiatric: A+Ox3, euthymic affect Lymphatic: no cervical or axillary lymphadenopathy Results & Data ([facility]) Vital Signs (Past 12 Hours) Vital Signs Temp Pulse Pulse Resp BP Pulse Ox O2 Del Method 02/14/22 10:27 36.8 C 93 H 17 99/62 L 97 02/14/22 08:21 36.8 C 93 H 17 99/62 L 97 Room Air 02/14/22 07:43 86 02/14/22 03:37 36.7 C 85 18 118/71 96 Room Air 02/14/22 00:28 92 H 02/13/22 23:38 36.9 C 91 H 18 104/64 94 Room Air Laboratory Results T bili 1.4, AST 22, ALT 11, alkaline phos 96 Yesterday's blood count WBC 7, Hb 9.1, HCT 25, PLT S 86, PT 12.5, INR 1.2, NA 133, K3.4, CL 105, CO2 24, BUN 15, CR 0.9, glucose 99 Blood cx (-) thus far. Ammonia 106 yesterday Diagnostic Findings Portal doppler US 02/12: 1. Patent TIPS. However, elevated velocity within the TIPS with color aliasing which raises the possibility of a stenosis. 2. Cirrhosis. Perihepatic ascites. 3. Patent main portal vein. Liver US 02/12: 1. Cirrhotic liver with TIPS shunt and patent portal vein. 2. Small volume of abdominal ascites. 3. No cholelithiasis or sonographic evidence of acute cholecystitis. 4. Probable adenomyomatosis of the gallbladder. CXR 02/12: no acute abnormalities
--- NOTE | 2022-02-14 11:46 | Discharge Summary ---
Date of Service February 14, 2022 Admission HPI Per Admitting Provider Patient is 56 y/o M with PMH alcoholic cirrhosis, s/p TIPS procedure at [facility] in 01/06, ascites, recurrent paracentesis, fibrosis of liver, HTN, CAD, hyponatremia, degenerative disc disease, OA presented to ER for AMS. History obtained from patient, chart review, and patient's daughter. Patient able to answer questions, but has to stop often and be redirected as he is forgetting what he is saying and often forgetting words. Patient with recent history confusion. A few days ago locked himself out of his house and was confused and stayed outside all night long as he thought he was at his brothers house and kept knocking on door to try to get inside. In the morning he woke up on porch in he recognized he was at home and had to walk to brother's house come to let him in his house. ER in [facility] 02/09/22 for AMS and daughter reports was told had normal ammonia level and patient's mental status returned to baseline and was discharged home. Daughter states saw him that day and he seemed back to baseline. Patient reported he forgot to take Miralax that day. Patient's daughter states recent med change of lactulose to Miralax as pt states lactulose made him have BM quickly and made him nauseated. 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 He remembers going to work last night and getting off of work however he reports he does not remember anything after that until this morning. Evidently patient was waiting outside of [facility] this morning and was found to be confused and was referred to ER. Patient reports he feels like he is confused and complains of nausea, otherwise denies any other medical complaints. He reports chronic abdominal distention and he feels distention is at baseline. Denies any abdominal pain. Receives paracentesis once a week. Last paracentesis was on 02/03/2022 at [facility]. Patient's daughter reports he went on 02/10/22 but he did not have enough fluid to remove. Last ate around noon yesterday. Nothing to drink since 9:00PM yesterday. Patient reports he took his medications yesterday and thinks he took Miralax. Denies any known injury/fall/trauma. Denies fever/chills, diaphoresis, V/D/C, MOR[place]Z, dizziness, syncope, vision changes, neck pain, CP, SOB, orthopnea, palpitations, cough, sore throat, choking, otalgia, rhinorrhea, paresthesias, weakness, extremity weakness, extremity edema, rashes, urinary symptoms. Last ETOH drink 05/2021. Patient not forthcoming on how much he previously drank ETOH. States drank beer. [facility] [place] Following with GI in [facility] [employer] - Axel Gómez, Daughter's phone #[phone] Admission Exam Per Admitting Provider General: no acute distress, chronic ill appearing male Head: normocephalic, atraumatic Eyes: PERRL, EOM's intact, conjunctiva non-injected, anicteric ENT: normal inspection external ears, nose, mucous membranes mildly dry Neck: supple, trachea midline Lungs: clear, no respiratory distress, no wheezing/rhonchi/rales CV: RRR, no murmur, 1-2+ pretibial edema Abd: +distended, normal BS, soft, non-tender Ext: no cyanosis, no calf tenderness Neuro: Alert, oriented to person, place, year, day of week and not month. Slow to respond and needs frequent redirection, no focal deficits noted, normal affect Skin: warm, dry Principal Diagnosis hepatic encephalopathy Discharge Exam General: no acute distress, chronic ill appearing male Head: normocephalic, atraumatic Eyes: PERRL, EOM's intact, conjunctiva non-injected, anicteric ENT: normal inspection external ears, nose, mucous membranes mildly dry Neck: supple, trachea midline Lungs: clear, no respiratory distress, no wheezing/rhonchi/rales CV: RRR, no murmur, trace pretibial edema Abd: +distended, normal BS, soft, non-tender Ext: no cyanosis, no calf tenderness Neuro: Alert, oriented to person, place, year, day of week and month. interacting normally, no focal deficits noted, normal affect. no asterixis Skin: warm, dry Discharge Data Allergies Allergy/AdvReac Type Severity Reaction Status Date / Time lisinopril Allergy Severe Anaphylaxis Verified 02/12/22 11:42 Consultations 02/12/22 11:54 ED Decision to Admit Stat 02/12/22 15:11 Consult Gastroenterology Routine Ordered Studies 02/12/22 09:37 CT head/brain wo con Stat 02/12/22 12:56 US abdomen [US liver] Routine 02/13/22 15:29 US portal veins doppler [US duplex portal hepatic veins] Routine Hospital Course (1) Encephalopathy: - likely due to taking miralax instead of lactulose - had asterixis mildly in ED on admission - somewhat improved this morning - blood cultures NGTD - initially started on ceftriaxone pending work up completion - discontinued as no clear infection - abdominal pain without significant ascites on US - ammonia monitoring - AAOx3 - MS at baseline - patient to discontinue miralax as will need to take lactulose to have 2-3 loose BMs daily - discontinue abx - follow up GI outpatient - ok for discharge (2) Alcoholic cirrhosis: - s/p TIPS 12/2021 - No leukocytosis, H&H: 10.7/30, PLT: 98, INR: 1.2, AST: 31, ALT: 17, alk phos: 138, T bili: 2.0, direct bili: 0.7 - Lactate 2.3--> 2.1-->1.9 - Ammonia: 58-->109 this morning - MS improved however - abdominal US without significant ascites - CT Head: no acute intracranial abnormality - Possible hepatic encephalopathy. ?cause - discontinuing home lactulose vs o ccult infection? - Patient declining lactulose yesterday but may be amenable today - follow up GI - Continue rifaximin - Hold home Lasix and spironolactone currently with low BPs - restart as outpatient - GI consult - Patient follows with Micheal mcgill (3) Ascites: - Recurrent ascites requiring weekly paracentesis [facility] - Last paracentesis 02/03/2022. 02/10/2022 scheduled for paracentesis however reported not enough fluid to remove - Patient denies any abdominal pain, no noted abdominal pain to palpation today on exam. - low concern for SBP given no significant ascites, afebrile, no abdominal pain - d/c abx - abdominal US without significant ascites (4) Thrombocytopenia: - Chronic thrombocytopenia secondary to underlying cirrhosis - Plt: 98 on admission. Unknown baseline - No reported bleeding - Monitor (5) Chronic hyponatremia: - Na: 133 on admission - Unknown baseline - Monitor (6) HTN (hypertension): - Spironolactone and Lasix on hold currently with low BP - restart as outpatient - follow up GI (7) CAD (coronary artery disease): - Underlying cardiac history unknown. Patient unable to give history currently and daughter is unsure - Follows with cardiology in [place] - Dr Robins - no chest pain - ECG on admission with sinus tachycardia, no ischemic changes Plan DVT Prophylaxis: SCDs Code Status: Full Code Dispo: telemetry Patient's daughterDalia would like updates. . Follows with [facility] in [place] for routine care Reynaldo Grey MD [facility] Total Time Total Time Spent Total Time Spent (In Minutes): 27 Total Time Includes: Examination of the Patient, Discharge Planning, Medication Reconciliation and Communication With Other Providers Discharge Plan Discharge Items Patient Disposition: Home - Self-Care Reason For Visit: WEAKNESS, NAUSEA Discharge Diagnosis: hepatic encephalopathy Activity: Resume your previous activity Non-emergency contact: Primary Care Provider and Director Communications Call non-emergency contact if: you have any medication questions and your symptoms worsen Follow-up/Referrals: Natalie Amezcua M.D. [Primary Care Provider] - Raimundo Dawn DO [Outside Practitioners] - (Date & Time 02/18/2022 12:00 PM Provider Raimundo Dawn DO Department [facility] ) Diet: Low Sodium (2gm) Addtl Attending Provider Instructions: You were admitted for episodes of confusion. You recently changed from lactulose to miralax for BMs and then started having these episodes of confusion. You were started on antibiotics to cover any possible infection, but that was deemed unlikely after discussion with GI. You had an abdominal ultrasound that showed only a small amount of ascites (fluid in your abdomen). You had another abdominal scan that showed a functioning TIPS shunt that helps relieve pressure in the liver vascular system. You were ready for discharge and should take Lactulose to make sure you have 2-3 decent bowel movements per day. If you have had 2-3 bowel movements in a day, you do not need to take more lactulose. If you start to feel a little bit of confusion, you should take an extra dose of lactulose. Please follow up with your Director Communications/liver doctor on discharge. Pending Studies at Discharge: No Stand-Alone Forms: My [facility], Work/School Release, Smoking Cessation Medications and DC Order Prescriptions: New simethicone [Gas Relief (simethicone)] 80 mg Tablet,Chewable 80 mg PO Q6H PRN (Reason: abdominal discomfort) Qty: 30 0RF lactulose 20 gram/30 mL Solution 20 g PO BID Qty: 1500 0RF Rx Instructions: Take to have 2-3 BMs per day Continued furosemide 40 mg tablet 40 mg PO BID Xifaxan 550 mg tablet 550 mg PO BID folic acid 1 mg Tablet 1 mg PO DAILY gabapentin 600 mg Tablet 600 mg PO HS pantoprazole 40 mg tablet,delayed release (DR/EC) 40 mg PO DAILY loratadine 10 mg Tablet 10 mg PO DAILY spironolactone 50 mg Tablet 50 mg PO TID zonisamide 50 mg capsule 150 mg PO DAILY cholecalciferol (vitamin D3) 100 mcg (4,000 unit) Capsule 100 mcg PO DAILY Discontinued polyethylene glycol 3350 [Miralax] 17 gram Powder In Packet 17 g PO BID Discharge Orders: Discharge Order (Routine); Ordered 02/14/22 Ordered By: Reynaldo Grey Admission Data Admit Date/Time: 02/12/22 12:40 Attending Provider: Reynaldo Grey Admit Provider: Reynaldo Grey Primary Care Provider: Natalie Amezcua Other Providers: Reynaldo Grey ; Jason Ledesma ; [facility] Other Interventions: Discharge Summary Assessment (RN) Last Done: 02/14/22 10:27
== END 2022-02-14 13:00 | disposition home or self-care (01) | DRG 442 ==
LOC: ED 07:29 → 4W 12:40